=== PATIENT | female | born 1970 | race Hispanic/Latino ===

== ENCOUNTER 2025-09-01 06:31 | Emergency (ER) | payer OTHER ==
[~2025-09-01] VITALS: Ht 172.7 cm; Wt 65.0 kg
[2025-09-01 08:23] VITALS: BP 136/80
== END 2025-09-01 07:55 | disposition home or self-care (01) ==
LOC: ED 06:31
DX: S63.91XA Sprain of unspecified part of right wrist and hand, initial encounter (principal); W01.0XXA Fall on same level from slipping, tripping and stumbling without subsequent striking against object, initial encounter
CPT/HCPCS: 73130; 99283